=== PATIENT | female | born 1995 ===

== ENCOUNTER 2024-02-16 09:58 | Inpatient (IN) ==
[2024-02-16] MEDS ORDERED: Nalbuphine 10 MG/ML 1 ML VIAL IV PRN (10:18)
[2024-02-16] MEDS ORDERED: Lidocaine 1% VIAL 10 MG/ML 30 ML VIAL INJ PRN (10:18)
[2024-02-16] MEDS ORDERED: Prochlorperazine 5 mg/ml 2 ml VIAL (10 mg) IV PRN (10:18)
[2024-02-16] MEDS: Lactated Ringers 1000 ml BAG 1,000 ML IV ONE (10:30)
[2024-02-16] MEDS ORDERED: Morphine PF AMP (0.5MG/ML) 5 MG/10 ML AMP ONE (10:31)
[2024-02-16] MEDS: ceFOXitin 2 GM IVPREMIX 2 GM/50 ML BAG IVPB ONE (10:31)
[2024-02-16] MEDS ORDERED: fentaNYL 100 mcg/2 ml 50 MCG/ML VIAL ONE (10:31)
[2024-02-16 10:51] LABS: ABS Lymphocytes 1.3 10^3/uL (1.0-4.8); ABS Monocytes 0.4 10^3/uL (0.0-0.9); ABS Neutrophils 9.1 10^3/uL (1.5-7.6); ABS Nucleated RBC 0.02 10^3/ul; Eosinophil % 0.1 %; Hematocrit 39.1 % (35-45); Hemoglobin 13.6 g/dL (11.5-14.3); Lymphocyte % 12.3 %; Mean Corpuscular Hemoglobin 32.3 pg (27-33); Mean Corpuscular Hgb Conc 34.6 g/dL (31-36); Mean Corpuscular Volume 93.3 fL (80-97); Mean Platelet Volume 7.9 fL (7.5-11.2); Nucleated Red Blood Cells % 0.1 %/100WBC (0.0-0.8); Platelet Count 276 10^3/uL (150-450); Red Cell Distribution Width 14.6 % (12-17); White Blood Count 10.9 10^3/uL (3.8-11.8)
[2024-02-16] MEDS ORDERED: Oxytocin 10 UNITS/ML 1 ML VIAL ONE ×2 (11:17→11:42)
[2024-02-16] MEDS ORDERED: Ondansetron 4 mg VIAL 2 MG/ML 2 ml VIAL ONE (11:42)
[2024-02-16 11:52] LABS: Albumin 3.9 g/dL (3.2-5.2); Albumin/Globulin Ratio 1.4 (1-3); Calcium 9.3 mg/dL (8.6-10.3); Creatinine, Serum 0.6 mg/dL (0.51-0.95); Globulin 2.8 g/dL (2-4); Total Bilirubin 0.5 mg/dL (0.2-1.0); Total Protein 6.7 g/dL (6.4-8.9); eGFR CKD-EPI 123.8 (>60)
[2024-02-16 11:54] LABS: Urine Appearance Clear; Urine Bilirubin Negative (Negative); Urine Blood Negative (Negative); Urine Color Yellow; Urine Glucose Negative (Negative); Urine Ketones 2+ (Negative); Urine Nitrite Negative (Negative); Urine Protein Trace (Negative); Urine Specific Gravity 1.018 (1.002-1.030); Urine Urobilinogen Negative (Negative); Urine pH 7.5 (5.0-8.0)
[2024-02-16 12:17] LABS: Urine Benzodiazepine Screen None Detected (None Detect); Urine Cannabinoids Screen None Detected (None Detect); Urine Opiates Screen None Detected (None Detect)
[2024-02-16] MEDS ORDERED: Dibucaine 1% OINT 28.35 GM TUBE PR PRN (12:17)
[2024-02-16] MEDS ORDERED: Glycerin ADULT 2.4 gm SUPP PR PRN (12:17)
[2024-02-16] MEDS ORDERED: Witch Hazel PAD JAR TOPICAL PRN (12:17)
[2024-02-16] MEDS ORDERED: Lactated Ringers 1000 ml BAG 1,000 ML IV SCH (13:00)
[2024-02-16] MEDS: Sodium Citrate/Citric Acid LIQ 15 ML UDC PO ONE (14:43)
[2024-02-16] MEDS ORDERED: Naloxone 0.4 mg VIAL 0.4 mg/ml 1 ml VIAL IV PUSH PRN (15:23)
[2024-02-16] MEDS ORDERED: Ondansetron 4 mg VIAL 2 MG/ML 2 ml VIAL IV PRN (15:23)
[2024-02-16] MEDS ORDERED: Acetaminophen IV 1 GM/100ML 1,000 MG/100 ML BAG IV PRN (15:23)
[2024-02-16] MEDS ORDERED: Metoclopramide 5 MG/ML VIAL (10 mg) IV PRN (15:23)
[2024-02-16] MEDS: Buffered Lidocaine 1% SYRIN 1 ml INTRADERM ONE (19:12)
[2024-02-16] MEDS: Lactated Ringers 1000 ml BAG 1,000 ML IV SCH (19:12)
[2024-02-16] MEDS: Oxytocin in LR 20,000 MILLI.UNIT/1,000 ML BAG IV SCH (19:12)
[2024-02-17 06:53] LABS: ABS Eosinophils 0.1 10^3/uL (0.0-0.5); ABS Lymphocytes 1.3 10^3/uL (1.0-4.8); ABS Monocytes 0.5 10^3/uL (0.0-0.9); ABS Neutrophils 10.8 10^3/uL (1.5-7.6); Eosinophil % 0.4 %; Hemoglobin 12.3 g/dL (11.5-14.3); Lymphocyte % 10.1 %; Mean Corpuscular Hemoglobin 32.4 pg (27-33); Mean Corpuscular Hgb Conc 34.1 g/dL (31-36); Platelet Count 252 10^3/uL (150-450); Red Blood Count 3.78 10^6/uL (3.63-4.92); Red Cell Distribution Width 15.1 % (12-17); White Blood Count 12.6 10^3/uL (3.8-11.8)
[2024-02-19 08:06] VITALS: BP 116/71
== END 2024-02-19 14:30 | disposition home or self-care (01) | DRG 540 ==
LOC: MCHOBOUT 09:58 → MCHOB 10:22
PROVIDERS: ADMIT Obstetrics & Gynecology; ATTEND Obstetrics & Gynecology